=== PATIENT | female | born 1985 | race Caucasian/White ===

== ENCOUNTER 2023-10-27 16:10 | Outpatient (CLI) | payer OTHER, SELFPAY ==
--- NOTE | ~2023-10-27 | CT_ITS ---
EXAMINATION: CT abdomen pelvis wo con DATE: 10/27/2023 16:35 INDICATION: Hematuria TECHNIQUE: Computed tomography (CT) of the abdomen and pelvis was performed without intravenous contr ast. The dose-length product was 1493.67 mGy-cm. Automated exposure control and iterative reconstruct ion technique were employed. Automated exposure control and iterative reconstruction technique were e mployed. COMPARISON: None. FINDINGS: Lung bases unremarkable. Heart size normal. No significant pleural or pericardial effusion. Small fat-containing umbilical hernia. Nonobstructive bowel gas pattern. Normal appendix. The liver, spleen, pancreas, adrenal glands are unremarkable. There are nonobstructing bilateral joseluis l stones. Gallbladder is contracted. No free air or free fluid. IMPRESSION: 1. No acute abdominal abnormality. 2: Nonobstructing bilateral nephrolithiasis. Reviewed, dictated and finalized at location A.
== END 2023-10-27 16:11 | disposition home or self-care (01) ==
LOC: ANHIMG 16:16
PROVIDERS: PCP Physician Assistant Medical; Visit Provider Nurse Practitioner Family
DX: N20.0 Calculus of kidney (principal)
CPT/HCPCS: 74176